=== PATIENT | male | born 1985 | race Caucasian/White ===

== ENCOUNTER 2023-08-24 14:56 | Emergency (ER) | payer OTHER, SELFPAY ==
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
[2023-08-24 15:06] VITALS: BP 104/74; PULSE 80; RESP 18; TEMP 36.6; O2SAT 100
[2023-08-24 15:09] VITALS: BP 120/80; PULSE 91; O2SAT 99
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
[2023-08-24 15:30] VITALS: BP 100/70; PULSE 82; RESP 18; TEMP 36.6; O2SAT 99; BMI 25.1
[2023-08-24] MEDS: Ibuprofen 600 MG TABLET PO (16:19)
--- NOTE | 2023-08-24 17:30 | PC.NURSE ---
called report to domi sánchez rn-[id number] [address]
--- NOTE | 2023-08-24 17:33 | PC.NURSE ---
kelly rn report given for pt at [facility]
[2023-08-24 18:13] VITALS: BP 104/74; PULSE 80; RESP 18; TEMP 36.6; O2SAT 100
== END 2023-08-24 18:11 | disposition other institution (70) ==
PROVIDERS: Emergency Provider Emergency Medicine
DX: S62.304A Unspecified fracture of fourth metacarpal bone, right hand, initial encounter for closed fracture (principal); S62.306A Unspecified fracture of fifth metacarpal bone, right hand, initial encounter for closed fracture; W22.09XA Striking against other stationary object, initial encounter; Y93.9 Activity, unspecified; Y92.9 Unspecified place or not applicable; Y99.9 Unspecified external cause status
CPT/HCPCS: 29125; 73120; 99283; 99284